=== PATIENT | female | born 1970 | race Caucasian/White ===

== ENCOUNTER 2018-09-19 08:15 | Emergency (ER) | payer BC ==
[~2018-09-19] VITALS: Ht 144.8 cm; Wt 50.9 kg
[2018-09-19 08:17] VITALS: Ht 144.8 cm; Wt 50.9 kg
[2018-09-19] MEDS ORDERED: DICLOFENAC SODI50 MG PO (08:27)
[2018-09-19 09:43] VITALS: BP 125/72
== END 2018-09-19 09:23 | disposition home or self-care (01) ==
LOC: D.ER 08:15
DX: M25.551 Pain in right hip (principal); F17.200 Nicotine dependence, unspecified, uncomplicated

== ENCOUNTER 2018-09-26 11:49 | Emergency (ER) | payer BC ==
[~2018-09-26] VITALS: Ht 144.8 cm; Wt 50.9 kg
[~2018-09-26 11:49] MED LIST: DICLOFENAC SODI50 MG PO
[2018-09-26 11:52] VITALS: Ht 144.8 cm; Wt 50.9 kg
[2018-09-26] MEDS ORDERED: BACTRIM DS1 TAB PO (11:54)
[2018-09-26] MEDS ORDERED: MEDROL DOSE PACK4 MG PO (15:19)
[2018-09-26 15:32] VITALS: BP 122/71
== END 2018-09-26 15:33 | disposition home or self-care (01) ==
LOC: D.ER 11:49
DX: T39.395A Adverse effect of other nonsteroidal anti-inflammatory drugs [NSAID], initial encounter (principal); Y92.019 Unspecified place in single-family (private) house as the place of occurrence of the external cause; I10 Essential (primary) hypertension; F17.200 Nicotine dependence, unspecified, uncomplicated

== ENCOUNTER 2018-09-28 08:48 | Emergency (ER) | payer BC ==
[~2018-09-28 08:48] MED LIST changes: +BACTRIM DS1 TAB PO; +MEDROL DOSE PACK4 MG PO
[2018-09-28 08:51] VITALS: Ht 144.8 cm
[2018-09-28 09:55] LABS: BASOPHILS 0.1 % (0-2); EOSINOPHILS 0.3 % (0-7); HEMATOCRIT 41.2 % (36.0-48.0); HEMOGLOBIN 14.2 g/dL (12-16); IMMATURE GRANULOCYTES 0.2 % (0-5); LYMPHOCYTES 29.1 % (15-50); MCH 33.6 pg (26.0-34.0); MCHC 34.5 g/dL (31.0-37.0); MCV 97.4 fL (80.0-100.0); MEAN PLATELET VOLUME 9.4 fL (7.4-10.4); MONOCYTES 5.9 % (2-11); NEUTROPHILS 64.4 % (40-80); PLATELET COUNT 197 10x3/uL (130-400); RBC 4.23 10x6/uL (4.00-5.40); WBC 9.6 10x3/uL (4.8-10.8)
[2018-09-28 10:11] LABS: ALBUMIN 3.7 g/dL (3.4-5.0); ANION GAP 15.7 mmol/L (8-16); BILIRUBIN - TOTAL 0.35 mg/dL (0.2-1.3); C-REACTIVE PROTEIN 6.5 mg/dL (0.0-0.9); CALCIUM 9.4 mg/dL (8.5-10.1); CARBON DIOXIDE 25.2 mmol/L (21.0-32.0); POTASSIUM - SERUM 3.9 mmol/L (3.5-5.1)
[2018-09-28] MEDS ORDERED: CLEOCIN HCL300 MG PO (11:33)
[2018-09-28] MEDS ORDERED: DICLOFENAC SODI50 MG PO (11:33)
[2018-09-28 13:48] VITALS: BP 124/74
== END 2018-09-28 14:00 | disposition home or self-care (01) ==
LOC: D.ER 08:48
PROVIDERS: Family Medicine
DX: K12.2 Cellulitis and abscess of mouth (principal); K02.3 Arrested dental caries; I10 Essential (primary) hypertension; F17.200 Nicotine dependence, unspecified, uncomplicated